=== PATIENT | male | born 1955 | race African-American/Black ===

== ENCOUNTER 2020-10-30 19:42 | Emergency (ER) | payer MEDICARE, OTHER ==
[2020-10-30 19:54] VITALS: TEMP 98.1; BMI 33.1
[2020-10-30 21:07] LABS: BASO % 0.4 % (0-2.0); EOS % 1.2 % (0-4.5); HEMATOCRIT 42.8 % (35.4-49); HEMOGLOBIN 14.4 GM/dL (11.7-16.9); MCH 27.2 pg (25.7-33.7); MCHC 33.7 g/dl (32.0-35.9); MEAN CELL VOLUME 80.7 fl (80-96); MONO % 3.6 % (3.8-10.2); NEUT % 79.8 % (42.8-82.8); PLATELET COUNT 206 K/MM3 (134-434); RBC 5.31 M/mm3 (4.00-5.60); WHITE BLOOD COUNT 8.3 K/mm3 (4.0-10.0)
[2020-10-30 21:29] LABS: ALBUMIN 3.8 g/dl (3.4-5.0); CALCIUM 9.1 mg/dL (8.5-10.1)
[2020-10-30 21:32] LABS: CREATININE 1.9 mg/dL (0.55-1.3)
[2020-10-30 21:34] LABS: BILIRUBIN,TOTAL 0.5 mg/dL (0.2-1)
[2020-10-30] MEDS ORDERED: LACTATED RINGERS SOLUTION 1000 ML INFUS.BAG IV ONE (22:32)
[2020-10-31] MEDS ORDERED: amLODIPine BESYLATE 5 MG TABLET (FP) PO ONE (00:19)
[2020-10-31] MEDS ORDERED: amLODIPine BESYLATE 5 MG TABLET (FP) ONE (00:22)
[2020-10-31 00:36] LABS: BLOOD UREA NITROGEN 30.5 mg/dL (7-18)
[2020-10-31 00:40] LABS: CREATININE 1.9 mg/dL (0.55-1.3)
[2020-10-31 01:01] VITALS: BP 141/68; PULSE 81
== END 2020-10-31 01:54 | disposition home or self-care (01) ==
LOC: JER 19:42
DX: R73.9 Hyperglycemia, unspecified (principal)
CPT/HCPCS: 36415; 80048; 80053; 82962; 84484; 85025; 93005; 93010; 99284-25

== ENCOUNTER 2023-10-13 11:14 | Observation (INO) | payer MEDICARE, OTHER ==
[2023-10-13] MEDS: SODIUM CHLORIDE 1,000 ML IV STA ×2 (12:25→15:49)
[2023-10-13 12:43] LABS: BASO % 0.6 % (0-2.0); EOS % 0.1 % (0-4.5); HEMATOCRIT 47.3 % (35.4-49); HEMOGLOBIN 15.2 GM/dL (11.7-16.9); LYMPH % 14.9 % (8-40); MCH 25.7 pg (25.7-33.7); MCHC 32.2 g/dl (32.0-35.9); MEAN CELL VOLUME 79.8 fl (80-96); MEAN PLT VOLUME 8.3 fl (7.5-11.1); MONO % 1.9 % (3.8-10.2); NEUT % 82.5 % (42.8-82.8); PLATELET COUNT 222 10^3/uL (134-434); RBC 5.93 M/mm3 (4.00-5.60); RDW 16.3 % (11.9-15.9); WHITE BLOOD COUNT 7.5 K/mm3 (4.0-10.0)
[2023-10-13 12:54] LABS: POTASSIUM 3.9 mmol/L (3.5-5.1)
[2023-10-13 12:55] LABS: ALBUMIN 3.9 g/dl (3.4-5.0); CALCIUM 9.3 mg/dL (8.5-10.1)
[2023-10-13 12:57] LABS: BLOOD UREA NITROGEN 37.6 mg/dL (7-18); MAGNESIUM 2.4 mg/dL (1.8-2.4)
[2023-10-13 12:58] LABS: CREATININE 1.6 mg/dL (0.55-1.3)
[2023-10-13 13:01] LABS: BILIRUBIN,TOTAL 0.8 mg/dL (0.2-1); TOT PROT 8.4 g/dl (6.4-8.2)
[2023-10-13 13:03] LABS: INR 1.24 (0.83-1.09); PROTHROMBIN TIME (PATIENT) 14.4 SEC (9.7-13.0)
[2023-10-13 13:07] VITALS: BMI 31.4
[2023-10-13 13:10] LABS: LACTIC ACID 3.3 mmol/L (0.4-2.0)
[2023-10-13] MEDS ORDERED: PANTOPRAZOLE SODIUM 40 MG VIAL ONE (18:20)
[2023-10-13] MEDS: PANTOPRAZOLE SODIUM 40 MG VIAL IVPUSH ONE ×2 (18:22)
[2023-10-13] MEDS ORDERED: ONDANSETRON 4 MG/2 ML VIAL IVPUSH PRN (18:25)
[2023-10-13] MEDS ORDERED: MECLIZINE HCL 12.5 MG TABLET PO PRN (18:26)
[2023-10-13] MEDS ORDERED: ALBUTEROL SO4 HFA INHALER IH PRN (18:35)
[2023-10-13] MEDS: INSULIN ASPART SLIDING SCALE (NOVOLOG) 1 VIAL SQ SCH (19:07)
[2023-10-13] MEDS: LACTATED RINGERS SOLUTION 1,000 ML/1,000 ML INFUS.BAG IV SCH (19:07)
[2023-10-13 19:09] LABS: LACTIC ACID 4.4 mmol/L (0.4-2.0)
[2023-10-13] MEDS ORDERED: INSULIN (NOVOLOG) ASPART 100 UNITS/ML 10ML VIAL ONE ×2 (19:09→21:57)
[2023-10-13 21:37] LABS: BASO % 0.1 % (0-2.0); EOS % 0.1 % (0-4.5); HEMOGLOBIN 15.7 GM/dL (11.7-16.9); LYMPH % 17.1 % (8-40); MCHC 32.7 g/dl (32.0-35.9); MEAN CELL VOLUME 79.5 fl (80-96); MEAN PLT VOLUME 7.9 fl (7.5-11.1); MONO % 6.1 % (3.8-10.2); NEUT % 76.6 % (42.8-82.8); PLATELET COUNT 186 10^3/uL (134-434); RBC 6.04 M/mm3 (4.00-5.60); RDW 16.3 % (11.9-15.9); WHITE BLOOD COUNT 6.1 K/mm3 (4.0-10.0)
[2023-10-13] MEDS ORDERED: CYCLOSPORINE OP SCH (22:00)
[2023-10-13] MEDS ORDERED: PATIENT'S OWN MEDICATION (NON-FORMULARY) (Brimonidine Tartrate/Timolol [Combigan 0.2%-0.5% OU SCH (22:00)
[2023-10-13] MEDS: INSULIN (LEVEMIR) 100 UNITS/ML UNITS SQ SCH (22:04)
[2023-10-13] MEDS: BRIMONIDINE TARTRATE 0.2% OPHTHALMIC 5 ML BOTTLE OU SCH (22:58)
[2023-10-13] MEDS: TIMOLOL 0.5% OPHTHALMIC SOL 5 ML BOTTLE OU SCH (22:58)
[2023-10-14] MEDS ORDERED: INSULIN (NOVOLOG) ASPART 100 UNITS/ML 10ML VIAL ONE (03:09)
[2023-10-14 08:36] LABS: BASO % 0.6 % (0-2.0); HEMATOCRIT 45.9 % (35.4-49); LYMPH % 19.9 % (8-40); MCH 25.7 pg (25.7-33.7); MCHC 32.6 g/dl (32.0-35.9); MEAN CELL VOLUME 78.9 fl (80-96); MEAN PLT VOLUME 7.9 fl (7.5-11.1); MONO % 11.3 % (3.8-10.2); NEUT % 67.2 % (42.8-82.8); PLATELET COUNT 223 10^3/uL (134-434); RBC 5.82 M/mm3 (4.00-5.60); RDW 16.5 % (11.9-15.9); WHITE BLOOD COUNT 6.9 K/mm3 (4.0-10.0)
[2023-10-14 09:01] LABS: POTASSIUM 4.4 mmol/L (3.5-5.1)
[2023-10-14 09:04] LABS: ALBUMIN 3.4 g/dl (3.4-5.0); BLOOD UREA NITROGEN 31.7 mg/dL (7-18); CALCIUM 8.7 mg/dL (8.5-10.1); MAGNESIUM 2.2 mg/dL (1.8-2.4)
[2023-10-14 09:07] LABS: CREATININE 1.5 mg/dL (0.55-1.3)
[2023-10-14 09:10] LABS: BILIRUBIN,TOTAL 0.8 mg/dL (0.2-1); TOT PROT 7.4 g/dl (6.4-8.2)
[2023-10-14] MEDS: ACETAMINOPHEN 1000 MG/100 ML BAG IVPB ONE (09:20)
[2023-10-14] MEDS ORDERED: EMPAGLIFLOZIN (JARDIANCE) 10 MG TABLET PO SCH (10:45)
[2023-10-14] MEDS: PANTOPRAZOLE SODIUM 40 MG VIAL IVPUSH SCH (10:47)
[2023-10-14] MEDS: amLODIPine BESYLATE 5 MG TABLET (FP) PO SCH (10:47)
[2023-10-14] MEDS: metoPROLOL SUCCINATE 25 MG TAB.SR.24H (FP) PO SCH (10:47)
[2023-10-14] MEDS: ASPIRIN 81 MG CHEWABLE TABLETS PO SCH (10:51)
[2023-10-14 11:18] LABS: N-TERMINAL BNP 4194.7 pg/ml (5-125)
[2023-10-14] MEDS: ONDANSETRON 4 MG/2 ML VIAL IVPUSH SCH (14:00)
[2023-10-14] MEDS: LISINOPRIL 5 MG TABLET PO SCH (18:16)
[2023-10-14] MEDS: BUDESONIDE/FORMETEROL FUMARATE 80/4.5 mcg INHALER IH SCH (18:17)
[2023-10-15] MEDS: EMPAGLIFLOZIN (JARDIANCE) 10 MG TABLET PO SCH (06:11)
[2023-10-15 07:26] LABS: BASO % 0.5 % (0-2.0); EOS % 2.1 % (0-4.5); HEMATOCRIT 44.2 % (35.4-49); HEMOGLOBIN 14.6 GM/dL (11.7-16.9); LYMPH % 28.2 % (8-40); MCH 26.1 pg (25.7-33.7); MEAN CELL VOLUME 79.1 fl (80-96); MEAN PLT VOLUME 8.2 fl (7.5-11.1); MONO % 8.7 % (3.8-10.2); NEUT % 60.5 % (42.8-82.8); PLATELET COUNT 210 10^3/uL (134-434); RBC 5.59 M/mm3 (4.00-5.60); WHITE BLOOD COUNT 5.6 K/mm3 (4.0-10.0)
[2023-10-15 07:51] LABS: POTASSIUM 3.7 mmol/L (3.5-5.1)
[2023-10-15 08:44] LABS: ALBUMIN 3.2 g/dl (3.4-5.0); BLOOD UREA NITROGEN 26.2 mg/dL (7-18)
[2023-10-15 08:45] LABS: CALCIUM 8.4 mg/dL (8.5-10.1); MAGNESIUM 2.2 mg/dL (1.8-2.4)
[2023-10-15 08:47] LABS: CREATININE 1.3 mg/dL (0.55-1.3); PHOSPHOROUS 2.8 mg/dL (2.5-4.9)
[2023-10-15] MEDS: PANTOPRAZOLE 40 MG TABLET PO SCH (09:06)
[2023-10-15 16:02] VITALS: BP 148/96; PULSE 72; RESP 18; TEMP 98.2
[2023-10-15] MEDS ORDERED: ATORVASTATIN CA 20 MG TABLET (FP) PO SCH (22:00)
== END 2023-10-15 16:05 | disposition home or self-care (01) ==
LOC: JER 11:14 → UNDOADMOB 17:24 → JERBED 17:24 → INTOOBSV 18:20 → OBSVTOIN 18:20 → JERBED 21:07 → J4W 21:07 → JERBED 10-14 13:41 → J4W 10-14 13:41
PROVIDERS: ADMIT Internal Medicine; ATTEND Internal Medicine
PROC: 3E033NZ Introduction of Analgesics, Hypnotics, Sedatives into Peripheral Vein, Percutaneous Approach (ICD-10-PCS; principal; 2023-10-14)
PROC: 3E013VG Introduction of Insulin into Subcutaneous Tissue, Percutaneous Approach (ICD-10-PCS; 2023-10-14)
PROC: 3E0337Z Introduction of Electrolytic and Water Balance Substance into Peripheral Vein, Percutaneous Approach (ICD-10-PCS; 2023-10-14)
DX: K92.2 Gastrointestinal hemorrhage, unspecified (principal); R11.2 Nausea with vomiting, unspecified; R19.7 Diarrhea, unspecified; I25.10 Atherosclerotic heart disease of native coronary artery without angina pectoris; E11.9 Type 2 diabetes mellitus without complications; I50.9 Heart failure, unspecified; I11.0 Hypertensive heart disease with heart failure; E78.5 Hyperlipidemia, unspecified; N18.9 Chronic kidney disease, unspecified; Z79.84 Long term (current) use of oral hypoglycemic drugs; Z91.013 Allergy to seafood
CPT/HCPCS: 36415; 70450-TC; 71045-TC-FY; 74176-TC; 80053; 80061; 82140; 82271; 82272; 82550; 82553; 82728; 82962; 83036; 83540; 83550; 83605; 83735; 83880; 84100; 84443; 84484; 85025; 85610; 86850; 86900; 86901; 93005; 93010; 96361; 96372; 96374; 96375; 96376; 97116-GP; 97162-GP; 99285-25; G0378; J0131

== ENCOUNTER 2024-01-27 21:21 | Emergency (ER) | payer MEDICARE, OTHER ==
[2024-01-27 21:40] VITALS: BP 158/80; PULSE 77; RESP 16; TEMP 97.5; BMI 31.4
== END 2024-01-27 23:04 | disposition home or self-care (01) ==
LOC: JER 21:21
DX: E11.649 Type 2 diabetes mellitus with hypoglycemia without coma (principal); R42 Dizziness and giddiness; R53.1 Weakness; R61 Generalized hyperhidrosis
CPT/HCPCS: 82962; 99282-25

== ENCOUNTER 2024-02-23 17:40 | Emergency (ER) | payer MEDICARE, OTHER ==
[2024-02-23 18:15] VITALS: BMI 31.0
[2024-02-23 19:45] LABS: BASO % 0.5 % (0-2.0); EOS % 2.5 % (0-4.5); HEMATOCRIT 51.1 % (35.4-49); HEMOGLOBIN 16.8 GM/dL (11.7-16.9); LYMPH % 22.8 % (8-40); MCH 26.4 pg (25.7-33.7); MCHC 32.9 g/dl (32.0-35.9); MEAN CELL VOLUME 80.3 fl (80-96); MEAN PLT VOLUME 7.4 fl (7.5-11.1); NEUT % 68.2 % (42.8-82.8); PLATELET COUNT 229 10^3/uL (134-434); RBC 6.37 M/mm3 (4.00-5.60); WHITE BLOOD COUNT 5.3 K/mm3 (4.0-10.0)
[2024-02-23 19:54] LABS: POTASSIUM 4.6 mmol/L (3.5-5.1)
[2024-02-23 19:56] LABS: ALBUMIN 3.9 g/dl (3.4-5.0); BLOOD UREA NITROGEN 33.6 mg/dL (7-18); CALCIUM 9.9 mg/dL (8.5-10.1)
[2024-02-23 19:59] LABS: CREATININE 1.8 mg/dL (0.55-1.3)
[2024-02-23 20:01] LABS: BILIRUBIN,TOTAL 0.4 mg/dL (0.2-1); TOT PROT 8.6 g/dl (6.4-8.2)
[2024-02-23] MEDS: SODIUM CHLORIDE 0.9% 1000 ML INFUS.BAG IV ONE (21:16)
[2024-02-24 01:10] VITALS: TEMP 97.5
[2024-02-24 01:51] LABS: BLOOD UREA NITROGEN 27.3 mg/dL (7-18); CALCIUM 8.6 mg/dL (8.5-10.1)
[2024-02-24 01:52] LABS: ALBUMIN 3.4 g/dl (3.4-5.0)
[2024-02-24 01:54] LABS: CREATININE 1.4 mg/dL (0.55-1.3)
[2024-02-24 01:56] LABS: BILIRUBIN,TOTAL 0.5 mg/dL (0.2-1); TOT PROT 7.5 g/dl (6.4-8.2)
[2024-02-24] MEDS: SODIUM CHLORIDE 0.9% 500 ML INFUS.BAG IV ONE (02:55)
[2024-02-24 05:47] VITALS: BP 113/75; PULSE 90; RESP 16
== END 2024-02-24 09:01 | disposition home or self-care (01) ==
LOC: JER 17:40
DX: E86.0 Dehydration (principal); N17.9 Acute kidney failure, unspecified; E11.649 Type 2 diabetes mellitus with hypoglycemia without coma; Z79.4 Long term (current) use of insulin
CPT/HCPCS: 36415; 80053; 82962; 85025; 99283-25